=== PATIENT | female | born 1960 | race Two or more races ===

== ENCOUNTER 2021-02-05 13:48 | Inpatient (IN) | payer SELFPAY ==
[~2021-02-05] VITALS: Ht 162.6 cm; Wt 74.2 kg
[2021-02-05 16:12] LABS: ALBUMIN 3.2 g/dL (3.4-5.0); ANION GAP 6 mmol/L (5-15); CALCIUM 8.7 mg/dL (8.5-10.1); CHLORIDE 100 mmol/L (98-107)
--- NOTE | 2021-02-05 16:13 | NUR ---
plate maker note: Pt to room from lobby.
[2021-02-05 16:17] LABS: ALANINE AMINOTRANSFERASE 30 U/L (12-78); ALKALINE PHOSPHATASE 77 U/L (45-117); BILIRUBIN,TOTAL 0.5 mg/dL (0.2-1.0); CREATININE 0.81 mg/dL (0.55-1.02)
[2021-02-05 16:32] LABS: BASOPHILS % (AUTO) 0 % (0-1); EOSINOPHILS % (AUTO) 0 % (1-7); LYMPHOCYTES % (AUTO) 24 % (22-44); MEAN CORPUSCULAR HEMOGLOBIN 28.2 pg (27.0-34.8); MEAN CORPUSCULAR HGB CONC 33.4 g/dL (32.4-35.8); MEAN PLATELET VOLUME 7.9 fL (7.4-10.4); MONOCYTES % (AUTO) 6 % (2-9); NEUTROPHILS % (AUTO) 70 % (42-75); PLATELET COUNT 178 x10^3/uL (130-400); RED BLOOD COUNT 5.07 x10^6/uL (3.82-5.3)
[2021-02-05] MEDS ORDERED: ONDANSETRON 2MG/ML, 2ML IVPush ONE (17:00)
[2021-02-05] MEDS ORDERED: SODIUM CHLORIDE FLUSH 10ML SYR IVF ONE (17:00)
[2021-02-05] MEDS ORDERED: SODIUM CHLORIDE 0.9% 1,000 ML IV ONE (17:00)
[2021-02-05] MEDS ORDERED: KETOROLAC 30 MG/1 ML IVPush ONE (17:00)
[2021-02-05] MEDS ORDERED: SODIUM CHLORIDE 0.9% 1,000ML IVBOLUS ONE (17:00)
[2021-02-05] MEDS ORDERED: KETOROLAC 30 MG/1 ML ONE (17:03)
[2021-02-05] MEDS ORDERED: ONDANSETRON 2MG/ML, 2ML ONE (17:03)
--- NOTE | 2021-02-05 17:20 | NUR ---
PT TO ROOM 19 W/ C/O OT FEELING WELL X 6 DAYS. PT STATES NAUSEA, APARICIO, VOMITING, DIARRHEA, CONGESTION, SORE THROAT AND PRODUCTIVE COUGH. PT STATES SHE IS NOT VACCINATED. S/O AT HOME IS VACCINATED AND ONLY HAD A COUGH FOR A FEW DAYS. PT RESTING ON GURNEY. NADN. MONITORS APPLIED. VSS. WARM BLANKET PROVIDED. CALL LIGHT IN REACH.
--- NOTE | 2021-02-05 17:42 | NUR ---
ERP DR. CARPENTER AT BEDSIDE FOR RE-EVAL.
[2021-02-05 17:50] LABS: MICROSCOPIC INDICATED
[2021-02-05] MEDS ORDERED: SODIUM CHLORIDE FLUSH 10ML SYR IVF PRN (18:00)
[2021-02-05] MEDS ORDERED: DEXAMETHASONE 4 MG/ML, 1ML IV ONE (18:00)
[2021-02-05] MEDS ORDERED: CEFTRIAXONE 1,000 MG in DEXTROSE 5% 50 ML IVPB ONE (18:00)
[2021-02-05] MEDS ORDERED: DOXYCYCLINE 100MG TABLET PO ONE (18:00)
--- NOTE | 2021-02-05 18:08 | NUR ---
PT RESTING ON GURNEY. NADN. VSS. PT NOTED TO DESAT TO 88-90% RA PLACED ON 2L NC. ERP DR. CARPENTER AWARE.
[2021-02-05] MEDS ORDERED: DEXAMETHASONE 4 MG/ML, 1ML ONE (18:11)
[2021-02-05] MEDS ORDERED: KETOROLAC 30 MG/1 ML IV PRN (18:30)
[2021-02-05] MEDS ORDERED: CEFTRIAXONE 1,000 MG in DEXTROSE 5% 50 ML IVPB SCH (18:30)
[2021-02-05] MEDS ORDERED: ONDANSETRON 2MG/ML, 2ML IVPush PRN (18:30)
[2021-02-05] MEDS ORDERED: BISACODYL 10 MG SUPP PR PRN (18:30)
[2021-02-05] MEDS ORDERED: ACETAMINOPHEN 325 MG TABLET PO PRN (18:30)
[2021-02-05] MEDS ORDERED: POLYETHYLENE GLYCOL 17 GM PACKET PO PRN (18:30)
[2021-02-05 18:38] LABS: D-DIMER (DIC) 0.99 ug/mlFEU (0.00-0.52); PROTIME 10.4 Seconds (9.6-11.5)
[2021-02-05 18:40] LABS: C-REACTIVE PROTEIN, QUANT 2.3 mg/dL (0.02-0.49)
--- NOTE | 2021-02-05 18:49 | NUR ---
REPORT GIVEN TO NATHEN BERG RN.
--- NOTE | 2021-02-05 18:53 | NUR ---
REPORT GIVEN TO CARISA JACK RN. ALL QUESTIONS ANSWERED. AWAITING PT TRANSPORT.
[2021-02-05 21:18] VITALS: BP 128/75
[2021-02-05] MEDS: ASCORBIC ACID 500 MG TABLET PO SCH (21:22)
[2021-02-05] MEDS: HEPARIN 5,000 UNITS/ML, 1ML SQ SCH (21:22)
[2021-02-05] MEDS: SODIUM CHLORIDE 0.9% 1,000 ML IV SCH (21:23)
[2021-02-05] MEDS: DOXYCYCLINE 100 MG in DEXTROSE 5% 250 ML IV SCH (21:23)
[2021-02-06 02:31] VITALS: BP 119/57
[2021-02-06] MEDS: HEPARIN 5,000 UNITS/ML, 1ML SQ SCH ×3 (04:25→20:51)
[2021-02-06] MEDS: SODIUM CHLORIDE 0.9% 1,000 ML IV SCH ×2 (04:26→12:51)
[2021-02-06 05:59] LABS: BASOPHILS % (AUTO) 0 % (0-1); EOSINOPHILS % (AUTO) 0 % (1-7); LYMPHOCYTES % (AUTO) 26 % (22-44); MEAN CORPUSCULAR HEMOGLOBIN 27.9 pg (27.0-34.8); MEAN CORPUSCULAR HGB CONC 32.7 g/dL (32.4-35.8); MEAN PLATELET VOLUME 7.7 fL (7.4-10.4); MONOCYTES % (AUTO) 7 % (2-9); NEUTROPHILS % (AUTO) 67 % (42-75); PLATELET COUNT 155 x10^3/uL (130-400); RED BLOOD COUNT 4.58 x10^6/uL (3.82-5.3)
[2021-02-06 06:01] LABS: ANION GAP 4 mmol/L (5-15); CHLORIDE 106 mmol/L (98-107); CREATININE 0.45 mg/dL (0.55-1.02)
[2021-02-06 07:46] VITALS: BP 118/75
[2021-02-06] MEDS: ASCORBIC ACID 500 MG TABLET PO SCH ×3 (08:34→20:50)
[2021-02-06] MEDS: DEXAMETHASONE 4 MG/ML, 1ML IVPush SCH (08:35)
[2021-02-06] MEDS: ZINC SULFATE 220 MG CAPSULE PO SCH (08:35)
[2021-02-06] MEDS: CHOLECALCIFEROL 5,000u TAB PO SCH (08:35)
[2021-02-06] MEDS: DOXYCYCLINE 100 MG in DEXTROSE 5% 250 ML IV SCH (08:36)
[2021-02-06 12:46] VITALS: BP 119/79
[2021-02-06] MEDS: CEFTRIAXONE 1,000 MG in DEXTROSE 5% 50 ML IVPB SCH (15:13)
[2021-02-06 19:33] VITALS: BP 111/71
[2021-02-06] MEDS: BENZONATATE 100 MG CAPSULE PO SCH (20:50)
[2021-02-06] MEDS: DOXYCYCLINE 100MG TABLET PO SCH (20:50)
[2021-02-07 00:06] VITALS: BP 96/59
[2021-02-07] MEDS: HEPARIN 5,000 UNITS/ML, 1ML SQ SCH ×2 (05:09→12:24)
[2021-02-07 07:46] VITALS: BP 99/61
[2021-02-07] MEDS ORDERED: PHARMACY INSTRUCTION MC PRN (08:00)
[2021-02-07] MEDS ORDERED: REMDESIVIR 200 MG in SODIUM CHLORIDE 0.9% 250 ML IVPB ONE (08:00)
[2021-02-07] MEDS: CHOLECALCIFEROL 5,000u TAB PO SCH (08:20)
[2021-02-07] MEDS: DEXAMETHASONE 4 MG/ML, 1ML IVPush SCH (08:20)
[2021-02-07] MEDS: DOXYCYCLINE 100MG TABLET PO SCH ×2 (08:20→20:52)
[2021-02-07] MEDS: ZINC SULFATE 220 MG CAPSULE PO SCH (08:20)
[2021-02-07] MEDS: BENZONATATE 100 MG CAPSULE PO SCH ×3 (08:20→20:52)
[2021-02-07] MEDS: THIAMINE 100MG TABLET PO SCH (08:20)
[2021-02-07] MEDS: ASCORBIC ACID 500 MG TABLET PO SCH ×3 (08:20→20:52)
[2021-02-07 12:19] LABS: BASOPHILS % (AUTO) 0 % (0-1); EOSINOPHILS % (AUTO) 0 % (1-7); LYMPHOCYTES % (AUTO) 7 % (22-44); MEAN CORPUSCULAR HEMOGLOBIN 28.4 pg (27.0-34.8); MEAN PLATELET VOLUME 7.9 fL (7.4-10.4); MONOCYTES % (AUTO) 3 % (2-9); NEUTROPHILS % (AUTO) 90 % (42-75); PLATELET COUNT 193 x10^3/uL (130-400); RED BLOOD COUNT 4.58 x10^6/uL (3.82-5.3); RED CELL DISTRIBUTION WIDTH 14.3 % (9.6-15.2)
[2021-02-07 12:31] LABS: ALANINE AMINOTRANSFERASE 23 U/L (12-78); ALBUMIN 2.6 g/dL (3.4-5.0); ANION GAP 4 mmol/L (5-15); CALCIUM 8.5 mg/dL (8.5-10.1); CHLORIDE 104 mmol/L (98-107); CREATININE 0.65 mg/dL (0.55-1.02)
[2021-02-07 12:34] LABS: ALKALINE PHOSPHATASE 68 U/L (45-117); BILIRUBIN,TOTAL 0.3 mg/dL (0.2-1.0); TOTAL PROTEIN 7.8 g/dL (6.4-8.2)
[2021-02-07 13:19] VITALS: BP 115/72
[2021-02-07] MEDS: CEFTRIAXONE 1,000 MG in DEXTROSE 5% 50 ML IVPB SCH (17:06)
[2021-02-07 20:50] VITALS: BP 118/61
[2021-02-07] MEDS: ENOXAPARIN 40 MG/0.4 ML SQ SCH (20:52)
[2021-02-08 02:00] VITALS: BP 106/64
[2021-02-08 05:13] LABS: ALBUMIN 2.4 g/dL (3.4-5.0); ANION GAP 4 mmol/L (5-15); CALCIUM 8.4 mg/dL (8.5-10.1); CHLORIDE 104 mmol/L (98-107)
[2021-02-08 05:15] LABS: D-DIMER 0.74 ug/mlFEU (0.00-0.52)
[2021-02-08 05:16] LABS: ALANINE AMINOTRANSFERASE 22 U/L (12-78); ALKALINE PHOSPHATASE 61 U/L (45-117); BILIRUBIN,TOTAL 0.3 mg/dL (0.2-1.0); TOTAL PROTEIN 7.5 g/dL (6.4-8.2)
[2021-02-08] MEDS: REMDESIVIR 100 MG in SODIUM CHLORIDE 0.9% 250 ML IVPB SCH (08:21)
[2021-02-08] MEDS: DOXYCYCLINE 100MG TABLET PO SCH ×2 (08:22→20:59)
[2021-02-08] MEDS: BENZONATATE 100 MG CAPSULE PO SCH ×3 (08:22→20:59)
[2021-02-08] MEDS: DEXAMETHASONE 4 MG/ML, 1ML IVPush SCH (08:22)
[2021-02-08] MEDS: ZINC SULFATE 220 MG CAPSULE PO SCH (08:22)
[2021-02-08 08:23] VITALS: BP 110/59
[2021-02-08] MEDS: THIAMINE 100MG TABLET PO SCH (08:23)
[2021-02-08] MEDS: ASCORBIC ACID 500 MG TABLET PO SCH ×3 (08:23→20:59)
[2021-02-08] MEDS: CHOLECALCIFEROL 5,000u TAB PO SCH (08:23)
[2021-02-08 13:38] VITALS: BP 113/68
[2021-02-08] MEDS: CEFTRIAXONE 1,000 MG in DEXTROSE 5% 50 ML IVPB SCH (16:16)
[2021-02-08 19:50] VITALS: BP 117/77
[2021-02-08] MEDS: ENOXAPARIN 40 MG/0.4 ML SQ SCH (21:00)
[2021-02-09 02:20] VITALS: BP 118/65
[2021-02-09 06:14] LABS: BASOPHILS % (AUTO) 0 % (0-1); EOSINOPHILS % (AUTO) 0 % (1-7); LYMPHOCYTES % (AUTO) 16 % (22-44); MEAN CORPUSCULAR HEMOGLOBIN 27.9 pg (27.0-34.8); MEAN CORPUSCULAR HGB CONC 33.1 g/dL (32.4-35.8); MEAN PLATELET VOLUME 8.1 fL (7.4-10.4); MONOCYTES % (AUTO) 8 % (2-9); NEUTROPHILS % (AUTO) 76 % (42-75); PLATELET COUNT 257 x10^3/uL (130-400); RED BLOOD COUNT 4.62 x10^6/uL (3.82-5.3); RED CELL DISTRIBUTION WIDTH 14.4 % (9.6-15.2)
[2021-02-09 06:37] LABS: CHLORIDE 104 mmol/L (98-107)
[2021-02-09 06:44] LABS: ALANINE AMINOTRANSFERASE 22 U/L (12-78); ALBUMIN 2.4 g/dL (3.4-5.0); ALKALINE PHOSPHATASE 65 U/L (45-117); ANION GAP 7 mmol/L (5-15); BILIRUBIN,TOTAL 0.4 mg/dL (0.2-1.0); CALCIUM 8.9 mg/dL (8.5-10.1); CREATININE 0.45 mg/dL (0.55-1.02); TOTAL PROTEIN 7.7 g/dL (6.4-8.2)
[2021-02-09 08:08] VITALS: BP 108/55
[2021-02-09] MEDS: REMDESIVIR 100 MG in SODIUM CHLORIDE 0.9% 250 ML IVPB SCH (08:22)
[2021-02-09] MEDS: CHOLECALCIFEROL 5,000u TAB PO SCH (08:22)
[2021-02-09] MEDS: ZINC SULFATE 220 MG CAPSULE PO SCH (08:22)
[2021-02-09] MEDS: DOXYCYCLINE 100MG TABLET PO SCH ×2 (08:22→20:28)
[2021-02-09] MEDS: DEXAMETHASONE 4 MG/ML, 1ML IVPush SCH (08:22)
[2021-02-09] MEDS: THIAMINE 100MG TABLET PO SCH (08:22)
[2021-02-09] MEDS: ASCORBIC ACID 500 MG TABLET PO SCH ×3 (08:23→20:28)
[2021-02-09] MEDS: BENZONATATE 100 MG CAPSULE PO SCH ×3 (08:23→20:28)
[2021-02-09 14:11] VITALS: BP 121/63
[2021-02-09] MEDS: CEFTRIAXONE 1,000 MG in DEXTROSE 5% 50 ML IVPB SCH (15:59)
[2021-02-09] MEDS: ENOXAPARIN 40 MG/0.4 ML SQ SCH (20:28)
[2021-02-10 00:53] VITALS: BP 114/59
[2021-02-10 05:47] LABS: ALBUMIN 2.7 g/dL (3.4-5.0); ANION GAP 6 mmol/L (5-15); CALCIUM 8.8 mg/dL (8.5-10.1); CHLORIDE 103 mmol/L (98-107)
[2021-02-10 05:54] LABS: ALANINE AMINOTRANSFERASE 24 U/L (12-78); ALKALINE PHOSPHATASE 65 U/L (45-117); BILIRUBIN,TOTAL 0.4 mg/dL (0.2-1.0); CREATININE 0.52 mg/dL (0.55-1.02); TOTAL PROTEIN 7.7 g/dL (6.4-8.2)
[2021-02-10 07:58] VITALS: BP 125/80
[2021-02-10] MEDS: BENZONATATE 100 MG CAPSULE PO SCH (09:00)
[2021-02-10] MEDS: DOXYCYCLINE 100MG TABLET PO SCH (09:07)
[2021-02-10] MEDS: REMDESIVIR 100 MG in SODIUM CHLORIDE 0.9% 250 ML IVPB SCH (09:07)
[2021-02-10] MEDS: ZINC SULFATE 220 MG CAPSULE PO SCH (09:08)
[2021-02-10] MEDS: THIAMINE 100MG TABLET PO SCH (09:08)
[2021-02-10] MEDS: DEXAMETHASONE 4 MG/ML, 1ML IVPush SCH (09:08)
[2021-02-10] MEDS: ASCORBIC ACID 500 MG TABLET PO SCH (09:08)
[2021-02-10] MEDS: CHOLECALCIFEROL 5,000u TAB PO SCH (09:08)
[2021-02-10] MEDS ORDERED: CEFD300C37 PO (10:24)
[2021-02-10] MEDS ORDERED: DOXY100T PO (10:24)
[2021-02-10 12:12] VITALS: BP 136/72
== END 2021-02-10 16:35 | disposition home or self-care (01) | DRG 177 ==
LOC: ED 17:30 → EDIP 17:59 → ED 18:49 → 3N 20:18
PROVIDERS: ADMIT Emergency Medicine; ATTEND Family Medicine
PROC: XW033E5 Introduction of Remdesivir Anti-infective into Peripheral Vein, Percutaneous Approach, New Technology Group 5 (ICD-10-PCS; principal; 2021-02-07)
DX: U07.1 COVID-19 (principal); J12.82 Pneumonia due to coronavirus disease 2019; J15.0 Pneumonia due to Klebsiella pneumoniae; J96.01 Acute respiratory failure with hypoxia; E87.1 Hypo-osmolality and hyponatremia; N39.0 Urinary tract infection, site not specified; D72.819 Decreased white blood cell count, unspecified; R79.1 Abnormal coagulation profile
CPT/HCPCS: 36415; 71045; 71275; 80048; 80053; 81001; 82728; 83605; 83615; 84145; 85025; 85049; 85379; 85384; 85610; 85730; 86140; 87040; 87077; 87086; 87186; 93005; 96361; 96374; 96375; 99285; G0378; J0696; J1100; J1644; J1650; J1885; J2405; J7060; U0005; J7030; J7050; U0003